=== PATIENT | male | born 1975 ===

== ENCOUNTER 2023-08-26 11:38 | Outpatient (REF) | payer SELFPAY ==
--- NOTE | 2023-08-26 12:46 | MHC.AU.HA3 ---
Hearing Instrument Follow-Up- Binaural Date of Visit: 08/26/23 Curriculum Development Coordinator Used: ASL - Video Right Ear: Gary, Model, Color, Serial Number: Jocelyn Freire 50-RL SN: [id number] Color: [place] Brown Splunk Developer Repair Warranty: 08/17/2026 Splunk Developer Loss and Damage Warranty: 08/17/2026 [facility] Service Plan: 07/07/2024 Battery Size: Rechargeable Front Maker Lockstitch/Slim Tube: #2 UP Earmold/Dome/CShell/SlimTip:Skeleton C-Shell SN: [id number] Warranty: 08/19/2023 Type of Wax Guard: CeruStop Dispensed By: [facility] Date of Fittin07/07/2023 Left Ear: Gary, Model, Color, Serial Number: Jocelyn Freire 50-RL SN: [id number] Color: [place] Brown Splunk Developer Repair Warranty: 08/17/2026 Splunk Developer Loss and Damage Warranty: 08/17/2026 [facility] Service Plan: 07/07/2024 Battery Size: Rechargeable Front Maker Lockstitch/Slim Tube: #2 UP Earmold/Dome/CShell/SlimTip: Skeleton C-Shell SN: [id number] Warranty: 08/29/2023 Type of Wax Guard: CeruStop Dispensed By: [facility] Date of Fittin07/07/2023 Follow-Up Summary: Arian reported that the hearing aids do not fully charge. He puts the hearing aids in the school bus driver/custodian while he sleeps for several hours. When he takes them out of the school bus driver/custodian and connects to the eli, they are always <50% charged even though he reportedly sees the green solid LED light. Sent the hearing aids to [facility] to replace the rechargeable battery. As far as sound quality, Arian reported the volume tends to go up and down. With his old hearing aids, he could hear police cars, fire trucks etc. However, whenever the new hearing aids hear a loud sound, they tend to cut out. He also reported he wants an increase in overall volume as well as he would continually increase the volume through the eli. Will readdress sound quality and make programming adjustments at appointment when hearing aids come back from repair. Will likely need to make programming more linear and decrease noise management settings. Arian reported he will use his old hearing aids in the meantime. Recommendations: Patient will be contacted when materials have arrived. Recommendations (Other): Will need appointment for picker / packer to make programming adjustments. [employer], cord, and wall plug are in repair drawer Diagnosis Code(s): Primary Diagnosis: H90.3 Bilateral Sensorineural Hearing Loss Signature: Provider: Rod Vasquez, [facility]
== END 2023-08-26 11:39 | disposition home or self-care (01) ==
LOC: HO.HAP 11:38
PROVIDERS: Visit Provider Family Medicine
DX: Z13.89 Encounter for screening for other disorder (principal)

== ENCOUNTER 2023-09-16 11:48 | Outpatient (REF) | payer SELFPAY | END 2023-09-16 11:49 | disposition home or self-care (01) | LOC: HO.HAP 11:48 | PROVIDERS: Visit Provider Family Medicine | DX: Z13.89 Encounter for screening for other disorder (principal) ==

== ENCOUNTER 2023-10-14 11:10 | Outpatient (REF) | payer SELFPAY ==
--- NOTE | 2023-10-14 12:46 | MHC.AU.HA3 ---
Hearing Instrument Follow-Up- Binaural Date of Visit: 10/14/23 End Trimmer Used: ASL - Video Right Ear: Gary, Model, Color, Serial Number: Jocelyn Freire 50-RL SN: [id number] Color: [place]ilon[place] Brown Unix Manager Repair Warranty: 08/17/2026 Unix Manager Loss and Damage Warranty: 08/17/2026 [facility] Service Plan: 07/07/2024 Battery Size: Rechargeable Biomass Power Plant Superintendent/Slim Tube: #2 UP Earmold/Dome/CShell/SlimTip:Skeleton C-Shell SN: [id number] Warranty: 08/19/2023 Type of Wax Guard: CeruStop Dispensed By: [facility] Date of Fittin07/07/2023 Left Ear: Gary, Model, Color, Serial Number: Jocelyn Freire 50-RL SN: [id number] Color: Vilonia Brown Unix Manager Repair Warranty: 08/17/2026 Unix Manager Loss and Damage Warranty: 08/17/2026 [facility] Service Plan: 07/07/2024 Battery Size: Rechargeable Biomass Power Plant Superintendent/Slim Tube: #2 UP Earmold/Dome/CShell/SlimTip: Skeleton C-Shell SN: [id number] Warranty: 08/29/2023 Type of Wax Guard: CeruStop Dispensed By: [facility] Date of Fittin07/07/2023 Follow-Up Summary: Difficulty understanding Arian's explanation of his experience with the hearing aids. Seemed like adjustments made at last appointment have been beneficial as he can hear fire trucks, police cars, etc now; however, he reportedly cannot control the hearing aids - unclear exactly what he meant by control. Discussed limits of amplification due to severity of loss if he meant that he could no longer increase the volume. Also, decreased noise management settings in all programs. Arian also reported that his right hearing aid often has difficulty connecting to the [employer] eli. Forgot both devices and successfully re-paired. Arian will try to new settings and call if problems persist. Recommendations: Hearing instrument follow-up or maintenance as needed. Patient will call if problems persist. Diagnosis Code(s): Primary Diagnosis: H90.3 Bilateral Sensorineural Hearing Loss Signature: Provider: Rod Vasquez, [facility]
== END 2023-10-14 11:11 | disposition home or self-care (01) ==
LOC: HO.HAP 11:10
PROVIDERS: Visit Provider Internal Medicine
DX: Z13.89 Encounter for screening for other disorder (principal)